=== PATIENT | male | born 1960 | race Caucasian/White ===

== ENCOUNTER 2019-12-12 19:06 | Inpatient (IN) | payer OTHER ==
[~2019-12-12] VITALS: Ht 177.8 cm; Wt 78.1 kg
[~2019-12-12 19:06] MED LIST: ETOMIDATE 40 MG/20 ML ONE; ROCURONIUM 10MG/ML,5ML ONE
--- NOTE | 2019-12-12 19:19 | NUR ---
THIS IS A 59 YO M W/ C/O SOB, BILAT LE EDEMA WORSENING OVER PAST 4-5 DAYS. PT IS HYPOTENSIVE. PRESENTS IN AFIB W/ RVR W/ A HR OF 150. RESP EVEN AND UNLABORED. PT IS CONVERSING IN FULL SENTENCES. CONNECTED TO ALL MONITORING. PIV IN PLACE VOLLEYBALL COACH. EMS GAVE 5 OF METOPROLOL VOLLEYBALL COACH. PT RESTING ON GURNEY W/ CALL LIGHT IN REACH. WILL CONTINUE TO MONITOR.
--- NOTE | 2019-12-12 19:22 | NUR ---
MED MALLORY FROM PHARMACY.
[2019-12-12] MEDS ORDERED: ASPIRIN 81 MG TABLET CHEW ONE (19:23)
--- NOTE | 2019-12-12 19:25 | NUR ---
IN ROOM W/ US.
--- NOTE | 2019-12-12 19:28 | NUR ---
LAB IN ROOM.
[2019-12-12] MEDS ORDERED: AMIODARONE 450 MG in DEXTROSE 5% 241 ML IV PRN (19:30)
[2019-12-12] MEDS ORDERED: AMIODARONE 150 MG in DEXTROSE 5% 100 ML IV ONE (19:30)
[2019-12-12] MEDS ORDERED: ASPIRIN 81 MG TABLET CHEW PO ONE (19:30)
[2019-12-12] MEDS ORDERED: FUROSEMIDE 40 MG/4 ML IV ONE (19:30)
[2019-12-12 19:46] LABS: MEAN CORPUSCULAR HEMOGLOBIN 36.4 pg (27.5-34.5); MEAN CORPUSCULAR HGB CONC 32.8 g/dL (33.2-36.2); MEAN PLATELET VOLUME 9.2 fL (7.4-10.4); PLATELET COUNT 127 x10^3/uL (130-400); RED BLOOD COUNT 4.64 x10^6/uL (4.38-5.82); RED CELL DISTRIBUTION WIDTH 17.5 % (9.4-14.8)
[2019-12-12 19:52] LABS: ALANINE AMINOTRANSFERASE 87 U/L (12-78); ALBUMIN 3.7 g/dL (3.4-5.0); ANION GAP 15 mmol/L (5-15); CALCIUM 8.6 mg/dL (8.5-10.1); CHLORIDE 98 mmol/L (98-107); CREATININE 1.39 mg/dL (0.7-1.3); INTERNATIONAL NORMALIZED RATIO 1.21 (0.93-1.1); PROTHROMBIN TIME 12.8 Seconds (9.6-11.5)
[2019-12-12 19:56] LABS: ALKALINE PHOSPHATASE 183 U/L (45-117); BILIRUBIN,TOTAL 2.6 mg/dL (0.2-1.0); TOTAL PROTEIN 7.6 g/dL (6.4-8.2); TROPONIN I 0.066 ng/mL (0.000-0.045)
[2019-12-12] MEDS ORDERED: PLEASE ENTER HEIGHT AND WEIGHT MC SCH (20:00)
[2019-12-12] MEDS ORDERED: FILTER 0.22 MICRON IV PRN (20:00)
[2019-12-12] MEDS ORDERED: FUROSEMIDE 40 MG/4 ML ONE (20:17)
[2019-12-12 20:18] LABS: BASOPHILS % (AUTO) 0 % (0-1); EOSINOPHILS % (AUTO) 0 % (1-7); LYMPHOCYTES # (AUTO) 0.64 x10^3/uL (1-3.4); LYMPHOCYTES % (AUTO) 8 % (22-44); MD SCAN; MONOCYTES % (AUTO) 7 % (2-9); NEUTROPHILS # (AUTO) 6.46 x10^3/uL (1.8-6.8); NEUTROPHILS % (AUTO) 85 % (42-75)
--- NOTE | 2019-12-12 20:31 | NUR ---
BP 80/61. NOTIFIED, IN ROOM FOR REEVAL.
[2019-12-12 20:43] LABS: FREE T4 (FREE THYROXINE) 1.25 ng/dL (0.76-1.46)
--- NOTE | 2019-12-12 20:50 | NUR ---
PT REPORTS THAT HE FEELS LIKE HE CAN'T CATCH HIS BREATH. INCREASED WORK OF BREATHING. IN ROOM. VS STABLE.
--- NOTE | 2019-12-12 20:54 | NUR ---
RT IN ROOM PLACING PT ON BIPAP.
--- NOTE | 2019-12-12 21:00 | NUR ---
REPORT GIVEN TO JUANITA TOVAR. PT TRANSFERED TO TRAUMA 3.
--- NOTE | 2019-12-12 21:04 | NUR ---
patient moved to trauma 3. received report from GUY Steven. patient hypotensive. placed on bipap.
--- NOTE | 2019-12-12 21:25 | NUR ---
patient unable to tolerate Bipap. placed back to nasal cannula @ 6 liters. ERP at bedside for re-evaluation.
--- NOTE | 2019-12-12 22:02 | NUR ---
patient still breathing 35-38 /min. MD aware. pt hypotensive given pushes phenylephrine by Dr Velázquez as preparing pt for intubation. Weak pulses, pads placed
[2019-12-12] MEDS ORDERED: PHENYLEPHRINE 10 MG/ML ONE (22:15)
--- NOTE | 2019-12-12 22:26 | NUR ---
100mg rocuronium given iv followed by 20mg etomidate, pt intubated by Dr Velázquez with 8.0 ET tube, , placement confirmed with equal rise and fall of chest, breath sounds bilat, end tidal 25. Pt contiues to have pulses at this time, however weak. MD confirms with bedside US, cardiac activity present, very weak. levophed started at 10mcg at this time. Pt becoming bradycardiac at this time, compressions started, epi pusehed
[2019-12-12] MEDS ORDERED: NOREPINEPHRINE 8 MG in SODIUM CHLORIDE 0.9% 242 ML IV PRN (22:30)
--- NOTE | 2019-12-12 22:33 | NUR ---
pulses back, bicarb and calcium given, then 1 amp d50 given 5units insulin, pt continues with pulses, epi gtt to start at this time.
--- NOTE | 2019-12-12 22:40 | NUR ---
levo stopped, epi stared, femoral pulse present per Dr Velázquez. ABG to be done at this time, pt requires bagging, unable to switch to vent at this time.
--- NOTE | 2019-12-12 22:48 | NUR ---
end tidal 51
--- NOTE | 2019-12-12 22:49 | NUR ---
pg code sagar @ 9779 pg cards @3408
[2019-12-12] MEDS ORDERED: SODIUM BICARB 8.4%, 50ML SYRINGE ONE (22:57)
[2019-12-12] MEDS ORDERED: CALCIUM CHLORIDE 10%, 10ML SYR ONE ×2 (22:57→23:46)
[2019-12-12] MEDS ORDERED: EPINEPHRINE SYRINGE 0.1 MG/ML, 10ML ONE (22:57)
[2019-12-12] MEDS ORDERED: SODIUM CHLORIDE 0.9%, 250ML ONE (22:57)
[2019-12-12] MEDS ORDERED: EPINEPHRINE 1 MG/ML, 1ML ONE (22:57)
[2019-12-12] MEDS ORDERED: CODE BLUE RESPONSE XX ONE (22:57)
--- NOTE | 2019-12-12 22:57 | NUR ---
pt contiues with pulses at this time, 16 beninese og tube placed and placement confirmed with auscultation and aspiration. 16 beninese blanchard placed. amio gtt to restart at this time.
[2019-12-12] MEDS ORDERED: EPINEPHRINE 5 MG in SODIUM CHLORIDE 0.9% 245 ML IV PRN (23:00)
[2019-12-12 23:41] LABS: ANION GAP 19 mmol/L (5-15); CALCIUM 9.4 mg/dL (8.5-10.1); CHLORIDE 100 mmol/L (98-107); CREATININE 1.85 mg/dL (0.7-1.3)
--- NOTE | 2019-12-12 23:43 | NUR ---
POTASSIUM IS 5.8
[2019-12-12] MEDS ORDERED: DEXTROSE 50%, 50ML SYRINGE ONE (23:46)
[2019-12-12] MEDS ORDERED: INSULIN SINGLE DOSE, ER ONE ×2 (23:47→23:49)
[2019-12-12] MEDS ORDERED: CALCIUM GLUCONATE 4.6 MEQ/10 ML ONE (23:48)
[2019-12-12] MEDS ORDERED: SODIUM BICARBONATE 1 MEQ/ML, 50ML VIAL ONE (23:49)
[2019-12-12] MEDS ORDERED: SODIUM CHLORIDE 0.9% 1,000 ML IV SCH (23:54)
[2019-12-12] MEDS ORDERED: ALBUTEROL SULFATE 2.5 MG/3 ML ONE (23:56)
[2019-12-13] MEDS ORDERED: HEPARIN 5,000 UNITS/ML, 1ML SQ SCH
[2019-12-13] MEDS ORDERED: ALBUTEROL SULFATE 2.5 MG/3 ML NPPB SCH
[2019-12-13] MEDS ORDERED: DEXTROSE 50%, 50ML SYRINGE IVPush ONE
[2019-12-13] MEDS ORDERED: EPINEPHRINE 5 MG in SODIUM CHLORIDE 0.9% 245 ML IV PRN
[2019-12-13] MEDS ORDERED: CALCIUM GLUCONATE 4.6 MEQ/10 ML IVPush ONE
[2019-12-13] MEDS ORDERED: AMIODARONE 450 MG in DEXTROSE 5% 241 ML IV PRN
[2019-12-13] MEDS ORDERED: INSULIN REGULAR 100 UNITS/ML, 3ML VIAL IVPush ONE
--- NOTE | 2019-12-13 00:24 | NUR ---
Dr. Velázquez at bedside for central line placement.
[2019-12-13] MEDS ORDERED: SODIUM BICARBONATE 8.4% 150 MEQ in DEXTROSE 5% 1,000 ML IV SCH (00:30)
--- NOTE | 2019-12-13 00:40 | NUR ---
CENTRAL LINE PLACED. XRAY AT BEDSIDE. REPORT GIVEN TO GUY RAMIREZ
[2019-12-13] MEDS: NOREPINEPHRINE 8 MG in SODIUM CHLORIDE 0.9% 242 ML IV PRN ×2 (01:09→03:39)
[2019-12-13] MEDS ORDERED: SODIUM BICARB 8.4%, 50ML SYRINGE IVPush ONE ×3 (01:30→02:00)
[2019-12-13] MEDS ORDERED: VASOPRESSIN 20 UNIT in SODIUM CHLORIDE 0.9% 99 ML IV PRN (01:30)
[2019-12-13 01:47] LABS: TROPONIN I 0.161 ng/mL (0.000-0.045)
[2019-12-13] MEDS ORDERED: PROPOFOL 100 ML IV PRN (02:05)
[2019-12-13] MEDS ORDERED: EPINEPHRINE 10 MG in SODIUM CHLORIDE 0.9% 240 ML IV PRN (02:24)
[2019-12-13] MEDS ORDERED: AMPICILLIN/SULBACTAM 3 GM in SODIUM CHLORIDE 0.9% 100 ML IV SCH (02:30)
[2019-12-13] MEDS ORDERED: PHARMACY MAY ADJ FOR RENAL FX MC SCH (02:30)
[2019-12-13] MEDS ORDERED: FENTANYL PF 100 MCG/2ML IVPush PRN (02:30)
[2019-12-13] MEDS ORDERED: LIDOCAINE-MPF 1%, 2ML ENDO PRN (02:30)
[2019-12-13 03:00] VITALS: BP 73/41
[2019-12-13 03:29] LABS: CULTURE INDICATED? YES; MICROSCOPIC INDICATED
[2019-12-13] MEDS ORDERED: HEPARIN 5,000 UNITS/ML, 1ML IV ONE (03:30)
[2019-12-13] MEDS ORDERED: PHENYLEPHRINE 50 MG in SODIUM CHLORIDE 0.9% 245 ML IV PRN (03:30)
[2019-12-13] MEDS ORDERED: HEPARIN 25,000 UNITS/250ML PMX 250 ML IV PRN (03:30)
[2019-12-13] MEDS ORDERED: HEPARIN 5,000 UNITS/ML, 1ML IV PRN (03:30)
[2019-12-13 04:00] VITALS: BP 68/41
[2019-12-13 04:29] LABS: ALANINE AMINOTRANSFERASE 509 U/L (12-78); ALBUMIN 1.8 g/dL (3.4-5.0); ANION GAP 24 mmol/L (5-15); CALCIUM 8.9 mg/dL (8.5-10.1); CHLORIDE 103 mmol/L (98-107); CREATININE 2.13 mg/dL (0.7-1.3)
[2019-12-13 04:51] LABS: BASOPHILS # (AUTO) 0.02 x10^3/uL (0-0.1); BASOPHILS % (AUTO) 0 % (0-1); EOSINOPHILS % (AUTO) 0 % (1-7); LYMPHOCYTES # (AUTO) 1.53 x10^3/uL (1-3.4); LYMPHOCYTES % (AUTO) 15 % (22-44); MD SCAN; MEAN CORPUSCULAR HEMOGLOBIN 37.3 pg (27.5-34.5); MEAN CORPUSCULAR HGB CONC 32.3 g/dL (33.2-36.2); MEAN CORPUSCULAR VOLUME 115.7 fL (81-97); MONOCYTES # (AUTO) 0.33 x10^3/uL (0.2-0.8); MONOCYTES % (AUTO) 3 % (2-9); NEUTROPHILS # (AUTO) 8.22 x10^3/uL (1.8-6.8); NEUTROPHILS % (AUTO) 81 % (42-75); RED BLOOD COUNT 4.59 x10^6/uL (4.38-5.82); RED CELL DISTRIBUTION WIDTH 17.3 % (9.4-14.8)
[2019-12-13 04:52] LABS: MEAN PLATELET VOLUME 8.9 fL (7.4-10.4); PLATELET COUNT 102 x10^3/uL (130-400)
[2019-12-13 04:56] LABS: ALKALINE PHOSPHATASE 147 U/L (45-117); BILIRUBIN,TOTAL 2.5 mg/dL (0.2-1.0); FREE T4 (FREE THYROXINE) 0.73 ng/dL (0.76-1.46); TOTAL PROTEIN 4.4 g/dL (6.4-8.2)
[2019-12-13] MEDS ORDERED: PANTOPRAZOLE 40 MG IV IVPush SCH (07:30)
[2019-12-13] MEDS ORDERED: EPINEPHRINE SYRINGE 0.1 MG/ML, 10ML ONE (16:29)
[2019-12-13] MEDS ORDERED: ADENOSINE 6 MG/2 ML ONE (16:29)
[2019-12-13] MEDS ORDERED: ATROPINE SYRINGE 0.1 MG/ML, 10ML ONE (16:30)
== END 2019-12-13 04:37 | disposition expired | DRG 208 ==
LOC: ED 20:05 → SUATTDRO 22:05 → EDIP 12-13 → CCU 12-13 00:27
PROVIDERS: ADMIT Internal Medicine; ATTEND Hospitalist
PROC: 03HY32Z Insertion of Monitoring Device into Upper Artery, Percutaneous Approach (ICD-10-PCS; principal; 2019-12-13)
PROC: 5A1935Z Respiratory Ventilation, Less than 24 Consecutive Hours (ICD-10-PCS; 2019-12-13)
PROC: 0BH17EZ Insertion of Endotracheal Airway into Trachea, Via Natural or Artificial Opening (ICD-10-PCS; 2019-12-13)
PROC: 02H633Z Insertion of Infusion Device into Right Atrium, Percutaneous Approach (ICD-10-PCS; 2019-12-13)
PROC: B548ZZA Ultrasonography of Superior Vena Cava, Guidance (ICD-10-PCS; 2019-12-13)
PROC: 5A12012 Performance of Cardiac Output, Single, Manual (ICD-10-PCS; 2019-12-13)
PROC: 0T9B70Z Drainage of Bladder with Drainage Device, Via Natural or Artificial Opening (ICD-10-PCS; 2019-12-13)
PROC: 5A09357 Assistance with Respiratory Ventilation, Less than 24 Consecutive Hours, Continuous Positive Airway Pressure (ICD-10-PCS; 2019-12-13)
DX: J96.01 Acute respiratory failure with hypoxia (principal); I21.4 Non-ST elevation (NSTEMI) myocardial infarction; K72.00 Acute and subacute hepatic failure without coma; N17.0 Acute kidney failure with tubular necrosis; E87.1 Hypo-osmolality and hyponatremia; E87.4 Mixed disorder of acid-base balance; I42.9 Cardiomyopathy, unspecified; I47.2 Ventricular tachycardia; Z99.11 Dependence on respirator [ventilator] status; J96.02 Acute respiratory failure with hypercapnia; D69.6 Thrombocytopenia, unspecified; D75.89 Other specified diseases of blood and blood-forming organs; E03.9 Hypothyroidism, unspecified; E87.5 Hyperkalemia; I44.7 Left bundle-branch block, unspecified; I48.91 Unspecified atrial fibrillation; I50.9 Heart failure, unspecified; R57.0 Cardiogenic shock
CPT/HCPCS: 31500; 36415; 36556; 36600; 71045; 80048; 80053; 81001; 82533; 82607; 82803; 83735; 83880; 84100; 84439; 84443; 84478; 84484; 85025; 85520; 85610; 87070; 87081; 87086; 87205; 92950; 93005; 94002; 94640; 94660; 96365; 96375; 99292; G0378; J0153; J0171; J0295; J0461; J1644; J1815; J1940; J7060; J7070; J7613; J0282; J0610; J7050